=== PATIENT | female | born 1980 | race Asian ===

== ENCOUNTER 2017-02-13 02:26 | Inpatient (IN) | payer OTHER ==
[~2017-02-13] VITALS: Ht 167.6 cm; Wt 69.0 kg
[2017-02-13 03:09] LABS: AMNI OBC PASS; AMNISURE POSITIVE (NEGATIVE)
[2017-02-13] MEDS ORDERED: NEWBORN KIT ONE ×2 (03:16→04:00)
[2017-02-13] MEDS ORDERED: OXYTOCIN 30U/ 0.9% NaCL 500ML 500 ML IV PRN (03:18)
[2017-02-13] MEDS ORDERED: OXYTOCIN 30U/ 0.9% NaCL 500ML 500 ML IV ONE (03:18)
[2017-02-13] MEDS ORDERED: FENTANYL PF 100 MCG/2ML IV PRN (03:30)
[2017-02-13] MEDS ORDERED: FENTANYL PF 100 MCG/2ML IVPush PRN (03:30)
[2017-02-13] MEDS ORDERED: SODIUM CHLORIDE FLUSH 10ML SYR IVF PRN (03:30)
[2017-02-13] MEDS ORDERED: ONDANSETRON 2MG/ML, 2ML IVPush PRN (03:30)
[2017-02-13] MEDS ORDERED: CALCIUM CARBONATE 500 MG TAB.CHEW PO PRN (03:30)
[2017-02-13] MEDS ORDERED: TERBUTALINE 1 MG/ML, 1ML IVPush PRN (03:30)
[2017-02-13] MEDS ORDERED: METOCLOPRAMIDE 5 MG/ML, 2ML IVPush PRN (03:30)
[2017-02-13] MEDS ORDERED: ALUMINUM/MAG/SIMETHICONE 30 ML UDC PO PRN (03:30)
[2017-02-13] MEDS ORDERED: SODIUM CITRATE/CITRIC ACID 30 ML UDC PO PRN (03:30)
[2017-02-13] MEDS ORDERED: MISOPROSTOL 200 MCG TABLET ONE (04:00)
[2017-02-13] MEDS ORDERED: LIDOCAINE 1%, 20ML ONE (04:00)
[2017-02-13] MEDS ORDERED: OXYTOCIN 30U/ 0.9% NaCL 500ML 500 ML ONE ×2 (04:00→20:35)
[2017-02-13] MEDS: LACTATED RINGERS 1,000 ML IV SCH ×6 (04:25→23:34)
[2017-02-13] MEDS: FENTANYL/BUPIV./NS/PF 250 ML EPIDCONT SCH (07:34)
[2017-02-13] MEDS ORDERED: FENTANYL/BUPIV./NS/PF 250 ML EPIDCONT ONE (07:39)
[2017-02-13] MEDS ORDERED: LIDOCAINE/PF 1.5%-EPI 1:200K, 30ML ONE (07:39)
[2017-02-13] MEDS ORDERED: EPHEDRINE 50 MG/ML, 1ML IVPush PRN (08:00)
[2017-02-13] MEDS ORDERED: LACTATED RINGERS 1,000 ML IVBOLUS PRN (08:00)
[2017-02-13] MEDS ORDERED: NALOXONE 0.4 MG/ML, 1ML IVPush PRN (08:00)
[2017-02-13] MEDS ORDERED: LACTATED RINGERS 1,000 ML INTUTE PRN (09:00)
[2017-02-13] MEDS ORDERED: LACTATED RINGERS 1,000 ML INTUTE SCH (09:00)
[2017-02-13] MEDS: D5%-LACTATED RINGERS 1,000 ML IV SCH ×3 (10:15→19:18)
[2017-02-13] MEDS ORDERED: PREN1TAB60 PO (15:29)
[2017-02-13] MEDS: OXYTOCIN 30U/ 0.9% NaCL 500ML 500 ML IV SCH (17:31)
[2017-02-13] MEDS ORDERED: MISOPROSTOL 200 MCG TABLET PR PRN (18:00)
[2017-02-13] MEDS ORDERED: BISACODYL 10 MG SUPP PR PRN (18:00)
[2017-02-13] MEDS ORDERED: ACETAMINOPHEN 325 MG TABLET PO PRN (18:00)
[2017-02-13] MEDS ORDERED: ONDANSETRON 2MG/ML, 2ML IV PRN (18:00)
[2017-02-13] MEDS ORDERED: GLYCERIN ADULT SUPP PR PRN (18:00)
[2017-02-13] MEDS ORDERED: METHYLERGONOVINE 0.2 MG/ML IM PRN (18:00)
[2017-02-13] MEDS ORDERED: OXYcodone/APAP 5/325MG TABLET PO PRN ×2 (18:00)
[2017-02-13] MEDS ORDERED: METOCLOPRAMIDE 5 MG/ML, 2ML IV PRN (18:00)
[2017-02-13] MEDS ORDERED: IBUPROFEN 600 MG TABLET ONE (19:32)
[2017-02-13] MEDS: IBUPROFEN 600 MG TABLET PO PRN (19:46)
[2017-02-13 21:00] VITALS: BP 93/56
[2017-02-14 01:00] VITALS: BP 88/55
[2017-02-14] MEDS: D5%-LACTATED RINGERS 1,000 ML IV SCH ×2 (03:18→11:18)
[2017-02-14] MEDS: LACTATED RINGERS 1,000 ML IV SCH ×3 (03:18→11:18)
[2017-02-14] MEDS: OXYTOCIN 30U/ 0.9% NaCL 500ML 500 ML IV SCH ×3 (03:31→23:31)
[2017-02-14 04:06] LABS: DIFF TOTAL CELLS COUNTED 100 CELL DIFF
[2017-02-14 04:08] LABS: ANISOCYTOSIS 1+; POLYCHROMASIA 1+; VERIFY COUNTS? YES
[2017-02-14 04:09] LABS: MICROCYTOSIS 1+
[2017-02-14] MEDS: FENTANYL/BUPIV./NS/PF 250 ML EPIDCONT SCH (04:24)
[2017-02-14 05:30] VITALS: BP 99/57
[2017-02-14 07:40] VITALS: BP 92/67
[2017-02-14] MEDS ORDERED: PRENATAL VIT/IRON/FA 1 EACH TABLET ONE (07:58)
[2017-02-14] MEDS: IBUPROFEN 600 MG TABLET PO PRN ×3 (08:06→21:09)
[2017-02-14] MEDS: PRENATAL VIT/IRON/FA 1 EACH TABLET PO SCH (08:06)
[2017-02-14] MEDS: DOCUSATE 100 MG CAPSULE PO PRN ×2 (08:06→21:08)
[2017-02-14 11:57] VITALS: BP 89/57
[2017-02-14 16:30] VITALS: BP 92/61
[2017-02-14 19:20] VITALS: BP 96/62
[2017-02-14] MEDS ORDERED: IBUP-1222 PO (20:29)
[2017-02-14] MEDS ORDERED: OXYC-302 PO (20:29)
[2017-02-14] MEDS ORDERED: DOCU-30 PO (20:30)
[2017-02-15] MEDS: IBUPROFEN 600 MG TABLET PO PRN ×2 (06:17→13:34)
[2017-02-15 08:34] VITALS: BP 95/66
[2017-02-15] MEDS: DOCUSATE 100 MG CAPSULE PO PRN (08:34)
[2017-02-15] MEDS: PRENATAL VIT/IRON/FA 1 EACH TABLET PO SCH (08:34)
== END 2017-02-15 19:15 | disposition home or self-care (01) | DRG 775 ==
LOC: LDOP 02:26 → LDIP 03:17 → 2NW 20:56
PROVIDERS: ADMIT Obstetrics & Gynecology; ATTEND Obstetrics & Gynecology
PROC: 3E033VJ Introduction of Other Hormone into Peripheral Vein, Percutaneous Approach (ICD-10-PCS; principal; 2017-02-13)
PROC: 10D07Z6 Extraction of Products of Conception, Vacuum, Via Natural or Artificial Opening (ICD-10-PCS; 2017-02-13)
PROC: 0KQM0ZZ Repair Perineum Muscle, Open Approach (ICD-10-PCS; 2017-02-13)
PROC: 0W8NXZZ Division of Female Perineum, External Approach (ICD-10-PCS; 2017-02-13)
PROC: 00HU33Z Insertion of Infusion Device into Spinal Canal, Percutaneous Approach (ICD-10-PCS; 2017-02-13)
PROC: 3E0R3CZ (ICD-10-PCS; 2017-02-13)
DX: O77.0 Labor and delivery complicated by meconium in amniotic fluid (principal); Z37.0 Single live birth; Z3A.38 38 weeks gestation of pregnancy; O75.81 Maternal exhaustion complicating labor and delivery; O70.1 Second degree perineal laceration during delivery
CPT/HCPCS: 36415; 82803; 84112; 85025; 86850; 86900; J2590; J3010; J7120; J7121

== ENCOUNTER 2019-05-22 00:59 | Inpatient (IN) | payer OTHER ==
[~2019-05-22] VITALS: Ht 167.6 cm; Wt 68.2 kg
[2019-05-23 08:00] VITALS: BP 93/60
== END 2019-05-23 13:45 | disposition home or self-care (01) | DRG 807 ==
LOC: LDOP 00:59 → LDIP 01:59 → 2NW 09:52
PROVIDERS: ADMIT Obstetrics & Gynecology; ATTEND Obstetrics & Gynecology
PROC: 10E0XZZ Delivery of Products of Conception, External Approach (ICD-10-PCS; principal; 2019-05-22)
PROC: 0KQM0ZZ Repair Perineum Muscle, Open Approach (ICD-10-PCS; 2019-05-22)
PROC: 10E0XZZ Delivery of Products of Conception, External Approach (ICD-10-PCS; 2019-05-22)
PROC: 3E0R3BZ Introduction of Anesthetic Agent into Spinal Canal, Percutaneous Approach (ICD-10-PCS; 2019-05-22)
PROC: 00HU33Z Insertion of Infusion Device into Spinal Canal, Percutaneous Approach (ICD-10-PCS; 2019-05-22)
DX: O99.824 Streptococcus B carrier state complicating childbirth (principal); Z37.0 Single live birth; Z3A.37 37 weeks gestation of pregnancy; O70.1 Second degree perineal laceration during delivery
CPT/HCPCS: 36415; S0020; 85025; 86850; 86900; 89060; G0378; J0290; J3010; J2590; J7050; J7120; Q0114